=== PATIENT | male | born 1990 | race Caucasian/White ===

== ENCOUNTER 2017-04-14 18:15 | Emergency (ER) | payer OTHER ==
--- NOTE | 2017-04-14 19:35 | EDPHY ---
H & P Smoking Status: Former smoker Time Seen by Provider: 04/14/17 18:47 HPI/ROS: CHIEF COMPLAINT: right ankle pain HISTORY OF PRESENT ILLNESS: 27-year-old male presents to the emergency department complaining of right ankle pain after he fell skateboarding 4 hours prior to arrival. Patient was skating and a half pipe when he twisted his ankle and fell onto his leg. Patient denies head strike, no neck pain, he was wearing a helmet. He denies previous injury to this foot. He denies numbness or tingling to this foot, no knee pain. REVIEW OF SYSTEMS: A comprehensive 10 point review of systems is otherwise negative aside from elements mentioned in the history of present illness. (Khushi Hathaway) Physical Exam: GEN: Awake, alert, oriented, no acute distress RESP: nl resp effort MSK: No C-spine tenderness, right ankle with diffuse swelling, medial and lateral tenderness to palpation, 2 +pedal pulses, sensation intact to light touch, cap refill less than 2 seconds SKIN: Superficial abrasions to medial right ankle (Khushi Hathaway) Constitutional: Initial Vital Signs Temperature (C) 36.7 C 04/14/17 18:32 Heart Rate 67 04/14/17 18:32 Respiratory Rate 16 04/14/17 18:32 Blood Pressure 149/91 H 04/14/17 18:32 O2 Sat (%) 97 04/14/17 18:32 O2 Delivery Mode Room Air Allergies/Adverse Reactions: No Known Allergies Allergy (Verified 04/14/17 18:31) Home Medications: Medication Instructions Recorded Hydrocodone/APAP 5/325 [[place] 1 tab PO Q4H PRN #20 tab 04/14/17 5/325] MDM/Departure - [facility] Imaging: I viewed and interpreted images myself - [facility] Imaging Results: Imaging Impressions Ankle X-Ray 04/14/17 18:42 Impression: Bimalleolar fracture dislocation. Ankle X-Ray 04/14/17 19:57 Impression: Increased displacement of bimalleolar fracture dislocation. Procedures: A posterior and sugar-tong Ortho Glass splint was applied. After application of the splint, I returned and re-examined the patient. X-rays show an increase in displacement. Dr. James was called, he reviewed the images. He recommends keeping this current splint in place, discharging the patient home to call and follow up with him in his office. The patients circulation and sensation were intact distal to the splint. (Khushi Hathaway) Medications Given: Discontinued Medications Hydrocodone Bitart/Acetaminophen ([place] 5/325mg Prepack#6) 1 btl TAKEHOME EDNOW ONE Stop: 04/14/17 21:02 Last Admin: 04/14/17 21:18 Dose: 1 btl Hydromorphone HCl (Dilaudid) 1 mg IVP EDNOW ONE Stop: 04/14/17 19:41 Last Admin: 04/14/17 19:40 Dose: 1 mg ED Course/Re-evaluation: IV established, patient is given 1 mg of Dilaudid. Patient is neurovascularly intact, posterior and sugar-tong splint applied. Patient is instructed on strict elevation. He is given follow-up instructions and return precautions. ( Khushi Hathaway) INDEPENDENT PHYSICIAN DOCUMENTATION I evaluated and participated in the management of the patient. I also evaluated the patient independently. My co-signature indicates that I have reviewed this chart and I agree with the findings and plan of care as documented. My personal H&P findings include: The patient presents to the ED with right ankle pain, swelling and deformity following a mechanical fall. X- rays demonstrate a bimalleolar ankle fracture. The patient was placed in a posterior three-way splint. I re-evaluated the patient following splint placement. The patient did have a post splinting x-ray performed which demonstrated slight posterior subluxation of the talus relative to the tibial surface. I did curbside Dr. Pipe James from Orthopedic surgery who will see the patient in the office tomorrow. (Nigel Rodriguez) - Depart Disposition: Home, Routine, Self-Care Clinical Impression: Bimalleolar ankle fracture Qualifiers: Encounter type: initial encounter Fracture type: closed Laterality: right Qualified Code(s): S82.841A - Displaced bimalleolar fracture of right lower leg , initial encounter for closed fracture Condition: Good Instructions: Hydrocodone/Acetaminophen (By mouth), Ankle Fracture (ED) Additional Instructions: Rest, ice, strict elevation above the level of your heart until your follow-up appointment with orthopedist. This will need surgery. Call in the morning to schedule an appointment to be seen. Return to the emergency department for any numbness or tingling to your foot, discoloration of your foot, any new symptoms or concerns. Take 600 mg of ibuprofen every 8 hours with food for 3-5 days, take [place] for severe pain. Prescriptions: Hydrocodone/APAP 5/325 [[place] 5/325] 1 tab PO Q4H PRN #20 tab PRN Reason: Pain, Moderate Referrals: Pipe James MD [Medical Doctor] - As per Instructions (Orthopedist on-call)
[2017-04-14] MEDS ORDERED: HYDROmorphONE/DILAUDID 1 MG/ML SYR ONE (19:37)
[2017-04-14] MEDS ORDERED: HYDROmorphONE/DILAUDID 1 MG/ML SYR IVP ONE (19:40)
[2017-04-14] MEDS ORDERED: HYDROCOD/APAP 5/325 PREPACK#6 BTL TAKEHOME ONE (21:01)
[2017-04-14 21:20] VITALS: BP 130/80; PULSE 56; RESP 20; TEMP 98.2; O2SAT 99
== END 2017-04-14 21:20 | disposition home or self-care (01) ==
DX: S82.841A Displaced bimalleolar fracture of right lower leg, initial encounter for closed fracture (principal); Z87.891 Personal history of nicotine dependence; V00.131A Fall from skateboard, initial encounter; Y99.8 Other external cause status; Y93.51 Activity, roller skating (inline) and skateboarding
CPT/HCPCS: 96374; J1170